=== PATIENT | female | born 1995 | race Caucasian/White ===

== ENCOUNTER 2025-04-20 17:31 | Emergency (ER) | payer SELFPAY ==
[~2025-04-20] VITALS: Ht 170.2 cm; Wt 79.4 kg
[2025-04-20 18:04] VITALS: PULSE 100; RESP 16; TEMP 98.5; O2SAT 97
[2025-04-20] MEDS ORDERED: FLUOXETINE HCL20 MG PO (18:29)
[2025-04-20] MEDS: METHYLPREDNISOLONE SOD SUCC 125 MG/2ML VIAL IV ONE (21:16)
[2025-04-20] MEDS: DIPHENHYDRAMINE HCL INJ 50 MG/ML VIAL IV ONE (21:16)
[2025-04-20] MEDS: FAMOTIDINE 20 MG/2 ML VIAL IV STA (21:16)
[2025-04-20] MEDS ORDERED: METHYLPREDNISOLO4 M1 PO (21:54)
[2025-04-20 22:42] VITALS: BP 116/72; PULSE 85; RESP 16; TEMP 98.5
== END 2025-04-20 22:34 | disposition home or self-care (01) ==
LOC: FSED 17:55
DX: L27.0 Generalized skin eruption due to drugs and medicaments taken internally (principal); T42.6X5A Adverse effect of other antiepileptic and sedative-hypnotic drugs, initial encounter; L40.9 Psoriasis, unspecified; F41.9 Anxiety disorder, unspecified; F32.A Depression, unspecified
CPT/HCPCS: 71046; 99284; J1200; J1308; J2919